=== PATIENT | female | born 1945 | race Caucasian/White ===

== ENCOUNTER → 2017-01-03 | Outpatient (CLI) | payer MEDICARE, BC ==
[~2017-01-03] MED LIST: APRESOLINE PO; CELEBREX PO; FISH OIL 1,0001 CA2 PO; HUMALOG100 U/ML SUBQ; HUMULIN R100 U/ML SUBQ; HYDRALAZINE HC100 MG PO; KEFLEX PO; LAMICTAL PO; LAMOTRIGINE100 MG PO; LANTUS100 U/ML SUBQ; LASIX PO; PHENERGAN25 MG PO; TOPROL XL PO; VITAMIN D50000 UNIT PO; ZEMPLAR; ZEMPLAR1 MCG PO; ZOCOR PO; ZYLOPRIM PO
[2017-01-08 09:25] LABS: URIC ACID 24HR URINE 205 mg/24 h (65-630)
== END | disposition home or self-care (01) ==
LOC: CLAB 12:42
PROVIDERS: Orthopaedic Surgery
DX: M10.9 Gout, unspecified (principal); M79.671 Pain in right foot
CPT/HCPCS: 84560